=== PATIENT | male | born 1975 | race Two or more races ===

== ENCOUNTER → 2018-02-23 | Outpatient (CLI) | payer OTHER ==
--- NOTE | 2018-02-24 09:52 | RAD ---
HISTORY: Neck pain for 2 weeks. Numbness in right arm. Study: AP and lateral cervical spine Comparison: None Findings: The neutral lateral view demonstrates loss of normal cervical lordosis. Otherwise there is normal al ignment from C1 through T1. The vertebral bodies and intervertebral disc spaces are of normal height . Very early spurring is noted at C5/C6. Prevertebral soft tissues are normal. Pre odontoid space is normal. Moderate ossification is noted in the right stylohyoid ligament. The posterior elements are intact. No appreciable facet or uncovertebral joint arthropathy is noted. The lateral masses C1 are symmetric about the lateral masses C2 and the odontoid process. IMPRESSION: 1. Cervical spondylosis as described above. 2. Loss of normal cervical lordosis which may be seen in normal individuals, be positional or second [place] to muscle spasm. 3. 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 4. No acute bony abnormalities are identified. Reported By:
== END | disposition home or self-care (01) | DRG 552 ==
LOC: RAD 16:08
PROVIDERS: ATTEND Nurse Practitioner Family
DX: M54.2 Cervicalgia (principal); M47.892 Other spondylosis, cervical region
CPT/HCPCS: 72040